=== PATIENT | male | born 1965 | race Caucasian/White ===

== ENCOUNTER 2019-10-08 23:48 | Emergency (ER) | payer MEDICARE, OTHER ==
[~2019-10-08] VITALS: Ht 177.8 cm; Wt 90.7 kg
[2019-10-09] MEDS ORDERED: TRAMADOL HCL50 MG PO (01:47)
== END 2019-10-09 01:58 | disposition home or self-care (01) ==
LOC: ED 23:48
DX: M54.2 Cervicalgia (principal); F17.200 Nicotine dependence, unspecified, uncomplicated
CPT/HCPCS: 72125; 96372; 99283-25; J1885

== ENCOUNTER 2019-12-18 05:21 | Inpatient (IN) | payer MEDICARE ==
[~2019-12-18] VITALS: Ht 177.8 cm; Wt 93.4 kg
[~2019-12-18 05:21] MED LIST: TRAMADOL HCL50 MG PO
--- NOTE | 2019-12-18 07:45 | NUR ---
PATIENT ARRIVED TO THE CCU ROOM 130 VIA STRETCH. PATIENT WAS ABLE TO STAND AND TRANSFER TO THE BED. PATIENT TOLERATED WELL. BREATH SOUNDS CLEAR IN UPPER LOBES AND COARSE/EXERTIONAL WHEEZE NOTED IN LOWER LOBES. PATIENTS STEPAN IS AT THE BEDSIDE. BREAKFAST ORDERED. NO OTHER NEEDS AT THIS TIME.
--- NOTE | 2019-12-18 08:10 | NUR ---
URINAL AT THE BEDSIDE. CALL LIGHT IN REACH. OXYGEN ON 2.5L WITH SPO2 94%. PATIENT DENEIS ANY OTHER NEEDS AT THIS TIME. WILL CONTINUE TO CLOSELY MONITOR.
--- NOTE | 2019-12-18 09:45 | NUR ---
Pt voided 300 ml, urine specimen spent to lab. Pt reported he was hot and appeared to be diphoretic. Pt resting in bedm guardrails up, call light in reach, MD Clark is at bedside w/Pt.
--- NOTE | 2019-12-18 11:00 | NUR ---
PATIENT RESTING I NBED. MD DAVALOS IN AND SEEN PATIENT. NEW ORDERS PROVIDED. MEDICATIONS GIVEN. GAVE MENU AND SHOWED PATIENT HOW TO ORDER HIS FOOD. PATIENT USED THE URINAL. NO O0THER NEEDS AT THIS TIME. WILL CONTINUE TO CLOSELY MONITOR.
--- NOTE | 2019-12-18 12:30 | NUR ---
PATIENT FELLS A LITTLE WORSE AT THIS TIME. PATIENT NOTED TO HAVE A LOW GRADE FEVER. PRN TYLENOL GIVEN. MD DAVALOS AWARE. RT STARTED PATIENT ON THE VAPOTHERM FOR EXTRA SUPPORT. PATIENT TOELRATING IT WELL. PATIENTS GOWN CHANGED FOR COMFORT. PATIENTS BACK AT THE BEDSIDE. WILL CONTINUE TO CLOSELY MONITOR.
--- NOTE | 2019-12-18 12:38 | NUR ---
MED REC COMPLETE
--- NOTE | 2019-12-18 14:56 | NUR ---
Pt resting in bed watching tv w/ at bedside. Pt requested to use the urinal and has no other needs at this time will continue to monitor. Guardrail up and call light within reach.
--- NOTE | 2019-12-18 15:16 | NUR ---
Spoke with Amador and his Zandra. They are both ill and she has started on antibiotics. Moved to [place] in July. Amador has been disabled since 2009 due to Bipolar issues. He was a commercial dry kim. He does not have a PCP and appt was scheduled with Elaine Mccormick at his request for 12/24/19 at 11:00. He plans to dc to home with his when criterial met for dc. Does not feel he will have any needs on dc.
--- NOTE | 2019-12-18 16:00 | NUR ---
Pt resting in bed, receiving an albuterol tx w/Rt at the bedside. Rt decreased the Vapotherm FIO2 from 45 to 40. Pt is diaphortic. Assessment completed. Rails/inspiratory/expiratory wheezes in upper/lower lung briceno. Dinner has been order. is at bedside, guardrails up, call light in reach. Will continue to monitor.
--- NOTE | 2019-12-18 16:30 | NUR ---
PATIENT RESTING IN BED ON VAPOTHERM AT THIS TIME. PATIENT IS TOLERATING WELL. PATIENT FEEL BETTER AT THIS TIME AND IS LESS SOB, BUT REMAINS DIAPHORETIC. WASH CLOTH PROVIDED FOR COMFORT. NO FEVER AT THIS TIME. WILL CONTINUE TO CLOSELY MONITOR.
--- NOTE | 2019-12-18 18:23 | NUR ---
Pt transfered from bed to chair w/Vapotherm tolerated well. Bedding was changed. Pt reports being diaphoretic is his base line. Solumderol was given. Pt transfered back to bed from chair. Dinner delivered. Pt resting in bed guardrails up , call light in reach. Will continue to monitor.
--- NOTE | 2019-12-18 18:42 | NUR ---
PATIENT EATING DINNER AT THIS TIME. PATIENT HAS NEW BEDDING IN PLACE. OFFERED A FRESH GOWN AT DENIED. NO OTHER NEEDS AT THIS TIME. WILL CONTINUE TO CLOSELY MONITOR.
--- NOTE | 2019-12-18 20:00 | NUR ---
PATIENT RESTING IN BED WATCHING TV. ALERT AND ORIENTED. REPORTS GENERAL ACHES AND PAIN. TOLERATING VAPOTHERM 25L AT 40% Fi02. LUNG SOUNDS; EXP WHEEZES RUL, COARSE RLL, CLEAN GALINA, DIMINSIHED LLL. NEB PROVIDED BY RT DIRECTLY BEFORE ASSESSMENT. PATIENT HAS LOOSE COUGH, DENIES SPUTUM PRODUCTION. DENIES NEED TO VOID. ATE 100% ON DINNER. IV FLUIDS PER ORDER, SITE WNL. ORAL TEMP WNL. PATIENT DENIES ANY FURTHER NEEDS. CALL LIGHT IN REACH.
--- NOTE | 2019-12-18 22:21 | NUR ---
PATIENT VOIDED USING URNAL. MEETING OUTPUT GOALS PER ORDERS. PATIENT TOLERATING VAPOTERM 45% FiO2. RR 20. DENIES ANY NEEDS AT THIS TIME. CALL LIGHT IN REACH.
--- NOTE | 2019-12-19 00:04 | NUR ---
RT TITRATED PATIENT TO 3L NC. PATIENT TOLERATING WELL. O2 SAT 95% AFTER 10 MINS.
--- NOTE | 2019-12-19 02:34 | NUR ---
PATIENT VOIDED 100 ML LOARINE COLORED URINE. PATIENT HAS HAD MINIMAL ORAL INTAKE. EDUCATED PATIENT AND PROVIDED FRESH ICE WATER. PRN LR BOLUS STARTED PER VERBAL ORDERS FROM FOR DECREASED URINE OUTPUT.
--- NOTE | 2019-12-19 05:43 | NUR ---
LAB IN FOR BLOOD DRAW. PATIENT RESTING IN BED. APPEARS DIAPHORETIC, WHICH HE REPORTS RESULT OF "FEAR OF NEEDLES". ORAL TEMP WNL. SCHEDULED MEDS PROVIDED. PATIENT 94% ON 1L NC. TITRATED TO ROOM AIR. PATIENT 87-88% ON ROOM AIR AFTER ABOUT 10 MINS. PATIENT PLACED BACK ON 1L NC. DENIES FEELING SOB REST. CONTINUES TO HAVE HARSH COUGH WITHOUT SPUTUM PRODUCTION. IV FLUIDS PER ORDER, SITE WNL. PATIENT DENIES NEED TO VOID.
--- NOTE | 2019-12-19 07:30 | NUR ---
Shift report received. Pt sleeping in bed, guardrails up, call light within reach, will continue to monitor.
--- NOTE | 2019-12-19 07:30 | NUR ---
PATIENT SHIFT REPORT RECIEVED FROM PACKAGE SORTER RN. PATIENT RESTING IN BED AT THIS TIME. CALL LIGHT IN REACH. WILL CONTINUE TO CLOSELY MONITOR.
--- NOTE | 2019-12-19 08:30 | NUR ---
Pt alert/orientated,breakfast was ordered. Pt asked when he was going home. Pt requested nicotine replacement. MD Siddiqi ordered nicotine patch/nicotine lozenge. Assessment completed. Expiratory wheezes in lung briceno. Pt talking and making jokes w/staff. Guardrails are up, call light within reach, will continue to monitor.
--- NOTE | 2019-12-19 12:30 | NUR ---
PATIENT RESTING IN BED AND CONTINUES TO FEEL BETTER AT THIS TIME.PATIENT WOULD LIKE A SHOWER TODAY. LUNCH ARRIVED. ASSESSMENT COMPLETED. PATIENT REMAINS ON 1L NASAL CANNULA AT THIS TIME WITH SPO2 93%. PATIENT USING INCENTIVE SPIROMETER THROUGHOUT THE DAY. WILL CONTINUE TO CLOSELY MONITOR.
--- NOTE | 2019-12-19 15:00 | NUR ---
PATIENT ASSISTED UP TO THE BATHROOM AND THEN AMBULATED TO THE CHAIR. BEDDING STRIPPED. PATIENT TOLERATING SITTING UP AT THIS TIME AND CONTINUES TO FEEL BETTER THIS AFTERNOON. PATIENTS AT THE BEDSIDE. UPDATED THAT PATIENT MIGHT TRANSFER TO [facility] THIS AFTERNOON. WILL CONTINUE TO CLSOELY MONITOR.
--- NOTE | 2019-12-19 16:45 | NUR ---
PATIENT REPORT GIVEN TO NICHOLE ROSARIO ON [facility] AND PATIENT TRANSFERED TO THE MEDICAL FLOOR. PATIENT TOELRATED WELL. PATIENT REMAINS ON 1L NASAL CANNULA. ALL BELONGINGS SENT WITH PATIENT. PATIENT AND FAMILY HOPEFUL HE CAN GO HOME TOMORROW. NO FURTHER QUESTIONS AT THIS TIME.
--- NOTE | 2019-12-19 16:50 | NUR ---
PT TO ROOM WITH , PT REAYD FOR SHOWER. PT STEADY ON HIS FEET AND DENIES SOB. O2 REMOVED FOR SHOWER AND PT REQUEST.
--- NOTE | 2019-12-19 17:30 | NUR ---
RN TO ROOM, PT RETURNED TO BED AND IS EATING DINNER. RESP INCREASED BUT PT DENIES SOB. O2 SAT 88% AND 2L O2 NC PLACED AND RN ENCOURAGES DEEP BREATHING. O2 SAT INCREASED TO 93%. PT REPORTS "MY GOAL IS TO LEAVE TOMORROW." PT HAS GONE HOME AND PT RESTING IN BED WATCHING TV. CLEAR SOUND CLEAR AND MINIMAL NONPRODUCTIVE COUGH NOTED. CALL LIGHT WITHIN REACH AND BED IN LOW. ALL QUESTIONS ANSWERED.
--- NOTE | 2019-12-19 18:08 | NUR ---
PATIENT CAME IN LATER ON IN THE DAY PATIENT SHOWERED. AT DINNER AND IS NOW WATCHING TV.
--- NOTE | 2019-12-19 19:11 | NUR ---
PT REPORTS A NAIL PUNCTURE TO HIS RIGHT ARM ONE WEEK AGO, PT REPORTS HE HAS PUT ABX OINTMENT FOR THE PAST WEEK. RN REMOVED BANDAID AND NOTED SMALL HOLE WITH SMALL AMOUNT OF WHITE DRINAGE INSIDE WHOLE. AREA AROUND HOLE DARK RED IN COLOR AND WARM AND SLIGHTLY HARDER TO THE TOUCH. CHARGE NURSE NOTED. PT DENIES PAIN.
--- NOTE | 2019-12-19 20:34 | NUR ---
PT IS ALERT, IN GOOD SPIRITS, LAYING ON BED WATCHING TV, IVF PATENT, DENIES ANY NEEDS ATHIS TIME.
--- NOTE | 2019-12-19 22:15 | NUR ---
SCHEDULED MEDS TAKEN, DENIES ANY NEEDS OR CONCERNS, WATCHING TV PROGRAM. CALL LIGHT IN EASY REACH.
--- NOTE | 2019-12-20 03:41 | NUR ---
PT REPORTS HE IS RESTING BETTER TONIGHT, REMAINS AFEBRILE, NO COMPLAINTS.
--- NOTE | 2019-12-20 06:29 | NUR ---
PT IS HOPING TO GO HOME TODAY, LOOSE PROD COUGH, STILL REQUIRING O2 @ 2L/NC, SCHEDULED NEBS WITH RT, AWAKE EARLY AND WANTING TO ORDER BREAKFAST. IVF PATENT, URINE OUTPUT QS, DARK LORAINE URINE. DENIES ANY DISCOMFORT.
--- NOTE | 2019-12-20 07:08 | NUR ---
REPORT RECEIVED FROM ABRAHAM HORTA. PT RESTING IN BED, BREAKFAST ORDERED. PT DENIES PAIN AND NAUSEA. COUGH NOTED. PT REMAINS ON 2L O2 BY NC WITH O2 SATURATION OF 90%. I.S. USE ENCOURAGED. NO ADDITIONAL REQUESTS OR COMPLAINTS AT THIS TIME. CALL LIGHT WITHIN REACH.
--- NOTE | 2019-12-20 08:01 | NUR ---
Patient is awake said he ordered breakfast. call light in reach
--- NOTE | 2019-12-20 08:06 | NUR ---
MORNING ASSESSMENT AND MEDICATIONS DUE. PT RESTING IN BED. ABDOMINAL MUSCLE USE NOTED WITH BREATING. O2 SATURATION AT 95% ON 2L O2 BY NC. PT WEANED TO ROOM AIR. TOLERATES WELL WITH O2 SATURATION 90-94% ON ROOM AIR. COUGH NOTED WITH INREACING SPUTUM. SPUTUM CLEAR TO WHITE. MEDICATIONS GIVEN. PT DENIES PAIN AND NAUSEA. PT ANTICIPATING BREAKFAST, NO ADDITIONAL REQUESTS OR COMPLAINTS AT THIS TIME.
--- NOTE | 2019-12-20 10:04 | NUR ---
THIS RN TO ROOM TO CHECK ON PT. O2 AT 92% ON ROOM AIR. PT UP TO CHAIR. NO REQUESTS OR COMPLAINTS AT THIS TIME. CALL LIGHT WITHIN REACH.
--- NOTE | 2019-12-20 10:50 | NUR ---
PT CALL LIGHT ON. PT REQUESTS TO SHOWER. IVS SALINE LOCKED, ALCOHOL CAPS APPLIED. IVS COVERED. PT UP FOR SHOWER. O2 AT 90% ON ROOM AIR. HR 104. NO ADDITIONAL REQUESTS OR COMLAINTS AT THIS TIME. CALL LIGHT WITHIN REACH.
--- NOTE | 2019-12-20 11:25 | NUR ---
MD TO BEDSIDE FOR ROUNDS. ORDERS FOR DISCHRAGE. IVS DC'S PER PROTOCOL. VITALS TAKEN. PT UP TO DRESS SELF. STEADY ON FEET. PHARMACY CALLED FOR MEDICATION EDUCATION. NO ADDITIONAL REQUESTS OR COMPLAINTS. CALL LIGHT WITHIN REACH.
[2019-12-20] MEDS ORDERED: OSELTAMIVIR PHO75 MG PO (11:31)
[2019-12-20] MEDS ORDERED: PREDNISONE10 MG PO (11:31)
[2019-12-20] MEDS ORDERED: NICOTINE PATCH1 EAC4 TD (11:31)
--- NOTE | 2019-12-20 11:55 | NUR ---
PT READY FOR DISCHRAGE. PHARAMCIST FINISHED REVIEWING MEDICATIONS WITH PT. PT VERBALIZES UNDERSTANDING OF MEDICAITONS AND STATES HIS QUESTIONS HAVE BEEN ANSWERED. DISCHRAGE INSTRUCTIONS REVEIWED WITH PT. PT VERBALIZES UNDERSTANDING OF INSTRUCTIONS, MEDICAITONS AND FOLLOW UP APPOINTMET. MASK APPLIED. PT WHEELED FROM MED/SURG WITH ALL BELONGINGS. NO ADDITONAL CONCERNS, REQUESTS OR COMPLAINTS.
--- NOTE | 2019-12-20 11:59 | NUR ---
patient went home
--- NOTE | 2019-12-25 09:23 | NUR ---
CALLED PT PHONE # [phone], NO ANSWER, MESSAGE LEFT.
== END 2019-12-20 11:55 | disposition home or self-care (01) | DRG 194 ==
LOC: ED 05:21 → CCU 05:23 → MS 12-19 16:39
PROVIDERS: ADMIT Student in an Organized Health Care Education/Training Program
DX: J10.1 Influenza due to other identified influenza virus with other respiratory manifestations (principal); J45.21 Mild intermittent asthma with (acute) exacerbation; F17.210 Nicotine dependence, cigarettes, uncomplicated; R73.9 Hyperglycemia, unspecified; R09.02 Hypoxemia
CPT/HCPCS: 36415; 71045; 80048; 80053; 81001; 83036; 83605; 83735; 83880; 84484; 85025; 85610; 85730; 87040; 87502; 94640; 94667; 94668; 94760; 94799; 99285-25; 99406; J1650; J2930; J7121

== ENCOUNTER 2020-06-17 23:19 | Emergency (ER) | payer MEDICARE ==
[~2020-06-17] VITALS: Ht 177.8 cm; Wt 93.4 kg
[~2020-06-17 23:19] MED LIST changes: +NICOTINE PATCH1 EAC4 TD; +OSELTAMIVIR PHO75 MG PO; +PREDNISONE10 MG PO
[2020-06-18] MEDS ORDERED: DICLOFENAC SODI75 MG PO (01:04)
== END 2020-06-18 01:11 | disposition home or self-care (01) ==
LOC: ED 23:19
DX: I80.01 Phlebitis and thrombophlebitis of superficial vessels of right lower extremity (principal); J45.909 Unspecified asthma, uncomplicated; F31.9 Bipolar disorder, unspecified
CPT/HCPCS: 93971; 99283-25